=== PATIENT | female | born 2000 | race Caucasian/White ===

== ENCOUNTER 2020-03-24 20:40 | Emergency (ER) | payer OTHER ==
[~2020-03-24] VITALS: Ht 160 cm; Wt 49.3 kg
--- NOTE | 2020-03-24 21:08 | NUR ---
Pt arrives to ed with not feeling well and right ankle swelling. Pt reports she was had an ax reaction to PCN and then switched to azithromycin. Pt reports she also feels ill and not eating as much. Pt reports she does have an appetite but cant eat as she gets nauseas.
[2020-03-24] MEDS ORDERED: ONDANSETRON ODT 4 MG ONE (21:27)
[2020-03-24] MEDS ORDERED: ONDANSETRON ODT 4 MG PO ONE (21:30)
--- NOTE | 2020-03-24 21:31 | NUR ---
US at bedside
--- NOTE | 2020-03-24 21:31 | NUR ---
Pt medicated for nausea
--- NOTE | 2020-03-24 21:33 | NUR ---
Pt informed to drink water in 15 minutes or when she no longer feels nauseas.
[2020-03-24 22:06] LABS: BASOPHILS # (AUTO) 0.05 x10^3/uL (0-0.3); BASOPHILS % (AUTO) 0 % (0-1); EOSINOPHILS # (AUTO) 0.11 x10^3/uL (0-0.8); EOSINOPHILS % (AUTO) 1 % (1-7); LYMPHOCYTES # (AUTO) 2.07 x10^3/uL (1-6.1); LYMPHOCYTES % (AUTO) 17 % (22-44); MD NO; MEAN CORPUSCULAR HEMOGLOBIN 30.1 pg (27.0-34.8); MEAN CORPUSCULAR HGB CONC 32.4 g/dL (32.4-35.8); MEAN PLATELET VOLUME 7.5 fL (7.4-10.4); MONOCYTES # (AUTO) 0.82 x10^3/uL (0-1.4); MONOCYTES % (AUTO) 7 % (2-9); NEUTROPHILS # (AUTO) 9.39 x10^3/uL (1.8-8.0); NEUTROPHILS % (AUTO) 76 % (42-75); PLATELET COUNT 397 x10^3/uL (130-400); RED BLOOD COUNT 4.73 x10^6/uL (3.82-5.3); RED CELL DISTRIBUTION WIDTH 12.1 % (9.6-15.2)
--- NOTE | 2020-03-24 22:50 | NUR ---
Pt ambulated to restroom
[2020-03-24 23:38] LABS: CHLORIDE 105 mmol/L (98-107); CREATININE 0.69 mg/dL (0.55-1.02)
[2020-03-24 23:40] LABS: ANION GAP 7 mmol/L (5-15); CALCIUM 9.2 mg/dL (8.5-10.1)
[2020-03-24] MEDS ORDERED: ACETAMINOPHEN 500 MG TABLET ONE (23:51)
[2020-03-25] MEDS ORDERED: ACETAMINOPHEN 500 MG TABLET PO ONE
--- NOTE | 2020-03-25 00:01 | NUR ---
Pt checked for fever as she was cold, Vitals wnl.
[2020-03-25 00:03] VITALS: BP 126/79
== END 2020-03-25 00:05 | disposition home or self-care (01) ==
LOC: ED 22:22
DX: B34.9 Viral infection, unspecified (principal); R94.31 Abnormal electrocardiogram [ECG] [EKG]
CPT/HCPCS: 36415; 80048; 85025; 86308; 93005; 93971; 99285; Q0162

== ENCOUNTER 2020-03-29 11:13 | Inpatient (IN) | payer OTHER ==
[~2020-03-29] VITALS: Ht 160 cm; Wt 57.0 kg
[2020-03-29] MEDS ORDERED: SODIUM CHLORIDE 0.9% 1,000ML IVBOLUS ONE (12:00)
[2020-03-29] MEDS ORDERED: SODIUM CHLORIDE FLUSH 10ML SYR IVF ONE (12:00)
[2020-03-29] MEDS ORDERED: ONDANSETRON 2MG/ML, 2ML IVPush ONE (12:00)
--- NOTE | 2020-03-29 12:15 | NUR ---
"In mid february I got coronavirus and recovered from that. Then I got strep throat and had an allergic reaction, so they switched my antibiotic, since then, I've had extreme abdominal pain, vomiting, diarrhea with blood in it" describes bilateral abd pain, pt has not had a negative covid test , denies cough, sob, sore throat unknown last period, IUD in place. Appears well, VSS (has slight fever at 99), tolerating water
[2020-03-29] MEDS ORDERED: ONDANSETRON 2MG/ML, 2ML ONE (12:34)
[2020-03-29] MEDS ORDERED: MORPHINE SULFATE 4 MG/ML, 1ML ONE ×2 (12:34→16:22)
--- NOTE | 2020-03-29 12:49 | NUR ---
piv started from which labs including lactate drawn and sent to lab Patient then medicated per emar (nausea/pain/dehydration)
[2020-03-29 12:57] LABS: BASOPHILS # (AUTO) 0.03 x10^3/uL (0-0.3); BASOPHILS % (AUTO) 0 % (0-1); EOSINOPHILS # (AUTO) 0.28 x10^3/uL (0-0.8); EOSINOPHILS % (AUTO) 2 % (1-7); LYMPHOCYTES # (AUTO) 1.63 x10^3/uL (1-6.1); LYMPHOCYTES % (AUTO) 14 % (22-44); MD NO; MEAN CORPUSCULAR HEMOGLOBIN 30.6 pg (27.0-34.8); MEAN CORPUSCULAR HGB CONC 33.6 g/dL (32.4-35.8); MEAN PLATELET VOLUME 8.2 fL (7.4-10.4); MONOCYTES # (AUTO) 0.73 x10^3/uL (0-1.4); MONOCYTES % (AUTO) 6 % (2-9); NEUTROPHILS # (AUTO) 9.17 x10^3/uL (1.8-8.0); NEUTROPHILS % (AUTO) 78 % (42-75); PLATELET COUNT 377 x10^3/uL (130-400); RED BLOOD COUNT 4.91 x10^6/uL (3.82-5.3); RED CELL DISTRIBUTION WIDTH 11.8 % (9.6-15.2)
[2020-03-29] MEDS: MORPHINE SULFATE 4 MG/ML, 1ML IVPush PRN ×2 (12:57→16:28)
[2020-03-29 13:07] LABS: ALBUMIN 3.3 g/dL (3.4-5.0); ANION GAP 8 mmol/L (5-15); CALCIUM 9.1 mg/dL (8.5-10.1); CHLORIDE 100 mmol/L (98-107); CREATININE 0.69 mg/dL (0.55-1.02)
[2020-03-29 13:09] LABS: MICROSCOPIC NOT IND
[2020-03-29 13:11] LABS: ALKALINE PHOSPHATASE 64 U/L (45-117); BILIRUBIN,TOTAL 0.7 mg/dL (0.2-1.0); TOTAL PROTEIN 7.3 g/dL (6.4-8.2)
[2020-03-29 13:18] LABS: ALANINE AMINOTRANSFERASE 22 U/L (12-78)
[2020-03-29] MEDS ORDERED: LEVE750T37 PO (15:01)
--- NOTE | 2020-03-29 15:37 | NUR ---
DR. Faust (HOSPITALIST) AT BEDSIDE
[2020-03-29] MEDS ORDERED: PROMETHAZINE 25 MG/ML, 1ML IM PRN (16:00)
[2020-03-29] MEDS ORDERED: METOCLOPRAMIDE 5 MG/ML, 2ML IVPush PRN (16:00)
[2020-03-29] MEDS ORDERED: ONDANSETRON 2MG/ML, 2ML IVPush PRN (16:00)
[2020-03-29] MEDS ORDERED: MORPHINE SULFATE 4 MG/ML, 1ML IVPush PRN (16:00)
[2020-03-29] MEDS ORDERED: OMNIPAQUE 350 MG/ML, 100ML BOTTLE ONE (16:17)
[2020-03-29] MEDS ORDERED: PANTOPRAZOLE 40 MG IV ONE (16:22)
[2020-03-29] MEDS: SODIUM CHLORIDE 0.9% 1,000 ML IV SCH (16:28)
[2020-03-29] MEDS: PANTOPRAZOLE 40 MG IV IVPush SCH (16:28)
[2020-03-29] MEDS ORDERED: ETHO250C PO (16:36)
--- NOTE | 2020-03-29 16:38 | NUR ---
MEDICATED PER EMAR FOR CONTINUED PAIN RATED AT 8/10
--- NOTE | 2020-03-29 16:49 | NUR ---
THROUGHPUT RN::SPOKE WITH BOTH VERONICA WITH INFECTIOUS DISEASE AND DR. ROCA ABOUT ADMISSION TO MED FLOOR WITHOUT COVID TEST. PER KATY MARTIN FROM CDC INFO, PT IS CONSIDERED NON INFECTIOUS IF QUARENTINED X 10 DAYS MINIMUM, HAD SYMPTOM IMPROVEMENT SINCE COVID DX AND NO FEVER WITHOUT ANTIPYRETICS, AND PT IS NOW SYMPTOM FREE.
--- NOTE | 2020-03-29 16:52 | NUR ---
Hospitalist called to notify for need to order inpatient anti-seizure medicine. Dr. Griffin reports he will order iv keppra and will allow patient to take po zarontin will small sip of water (as there is no iv equivalent
[2020-03-29 17:49] VITALS: BP 122/78
[2020-03-29] MEDS ORDERED: PHARMACY INSTRUCTION MC PRN (18:00)
[2020-03-29] MEDS ORDERED: GOLYTELY 4,000ML ORAL.SOL PO ONE (18:00)
[2020-03-29 18:03] VITALS: BP 122/78
[2020-03-29 20:33] VITALS: BP 130/87
[2020-03-29] MEDS: ETHOSUXIMIDE 500 MG HOMEMEDPO SCH (21:12)
[2020-03-29] MEDS: LEVETIRACETAM 1,500 MG in SODIUM CHLORIDE 0.9% 100 ML IV SCH (21:12)
[2020-03-30] MEDS: SODIUM CHLORIDE 0.9% 1,000 ML IV SCH ×3 (00:21→20:45)
[2020-03-30 00:34] VITALS: BP 119/78
[2020-03-30 06:04] LABS: CHLORIDE 105 mmol/L (98-107)
[2020-03-30 06:10] LABS: ALANINE AMINOTRANSFERASE 15 U/L (12-78); ALBUMIN 2.6 g/dL (3.4-5.0); ALKALINE PHOSPHATASE 48 U/L (45-117); ANION GAP 7 mmol/L (5-15); BILIRUBIN,TOTAL 0.8 mg/dL (0.2-1.0); CALCIUM 8.3 mg/dL (8.5-10.1); CREATININE 0.46 mg/dL (0.55-1.02); TOTAL PROTEIN 5.6 g/dL (6.4-8.2)
[2020-03-30 06:56] VITALS: BP 105/61
[2020-03-30 07:04] LABS: BASOPHILS # (AUTO) 0.03 x10^3/uL (0-0.3); BASOPHILS % (AUTO) 0 % (0-1); EOSINOPHILS # (AUTO) 0.29 x10^3/uL (0-0.8); EOSINOPHILS % (AUTO) 2 % (1-7); LYMPHOCYTES # (AUTO) 2.15 x10^3/uL (1-6.1); LYMPHOCYTES % (AUTO) 18 % (22-44); MD SCAN; MEAN CORPUSCULAR HGB CONC 32.8 g/dL (32.4-35.8); MONOCYTES # (AUTO) 0.85 x10^3/uL (0-1.4); MONOCYTES % (AUTO) 7 % (2-9); NEUTROPHILS # (AUTO) 8.66 x10^3/uL (1.8-8.0); NEUTROPHILS % (AUTO) 72 % (42-75); PLATELET COUNT 318 x10^3/uL (130-400); RED BLOOD COUNT 3.95 x10^6/uL (3.82-5.3); RED CELL DISTRIBUTION WIDTH 11.9 % (9.6-15.2)
[2020-03-30] MEDS: LEVETIRACETAM 1,500 MG in SODIUM CHLORIDE 0.9% 100 ML IV SCH ×2 (09:49→22:08)
[2020-03-30] MEDS: PANTOPRAZOLE 40 MG IV IVPush SCH ×2 (09:50→20:44)
[2020-03-30 12:19] VITALS: BP 106/71
[2020-03-30 14:35] LABS: OCCULT BLOOD POSITIVE (NEGATIVE)
[2020-03-30 15:20] LABS: CLOSTRIDIUM DIFFICILE ANTIGEN NEGATIVE; CLOSTRIDIUM DIFFICILE TOXIN NEGATIVE (Negative)
[2020-03-30 16:33] LABS: STOOL FOR LEUKOCYTES FEW (2-5/HPF) (NEGATIVE)
[2020-03-30 20:18] VITALS: BP 114/71
[2020-03-30] MEDS: ETHOSUXIMIDE 500 MG HOMEMEDPO SCH (20:44)
[2020-03-31 00:22] VITALS: BP 94/60
[2020-03-31] MEDS: SODIUM CHLORIDE 0.9% 1,000 ML IV SCH (02:58)
[2020-03-31 04:20] LABS: BASOPHILS # (AUTO) 0.03 x10^3/uL (0-0.3); BASOPHILS % (AUTO) 0 % (0-1); EOSINOPHILS # (AUTO) 0.34 x10^3/uL (0-0.8); EOSINOPHILS % (AUTO) 3 % (1-7); LYMPHOCYTES # (AUTO) 2.51 x10^3/uL (1-6.1); LYMPHOCYTES % (AUTO) 25 % (22-44); MD NO; MEAN CORPUSCULAR HEMOGLOBIN 29.9 pg (27.0-34.8); MEAN CORPUSCULAR HGB CONC 32.7 g/dL (32.4-35.8); MEAN PLATELET VOLUME 7.9 fL (7.4-10.4); MONOCYTES # (AUTO) 0.78 x10^3/uL (0-1.4); MONOCYTES % (AUTO) 8 % (2-9); NEUTROPHILS # (AUTO) 6.43 x10^3/uL (1.8-8.0); NEUTROPHILS % (AUTO) 64 % (42-75); PLATELET COUNT 326 x10^3/uL (130-400); RED BLOOD COUNT 3.93 x10^6/uL (3.82-5.3); RED CELL DISTRIBUTION WIDTH 12.2 % (9.6-15.2)
[2020-03-31 04:31] LABS: ALBUMIN 2.5 g/dL (3.4-5.0); ANION GAP 5 mmol/L (5-15); CALCIUM 8.2 mg/dL (8.5-10.1); CHLORIDE 109 mmol/L (98-107)
[2020-03-31 04:34] LABS: ALANINE AMINOTRANSFERASE 15 U/L (12-78); ALKALINE PHOSPHATASE 52 U/L (45-117); BILIRUBIN,TOTAL 0.5 mg/dL (0.2-1.0); CREATININE 0.43 mg/dL (0.55-1.02); TOTAL PROTEIN 5.5 g/dL (6.4-8.2)
[2020-03-31 07:44] VITALS: BP 111/75
[2020-03-31] MEDS: LEVETIRACETAM 1,500 MG in SODIUM CHLORIDE 0.9% 100 ML IV SCH ×2 (10:00→22:03)
[2020-03-31] MEDS: PANTOPRAZOLE 40 MG IV IVPush SCH ×2 (10:00→20:43)
[2020-03-31 13:19] VITALS: BP 106/69
[2020-03-31] MEDS ORDERED: SODIUM CHLORIDE 0.9% 1,000 ML IV SCH (15:55)
[2020-03-31 17:58] VITALS: BP 133/86
[2020-03-31 19:26] VITALS: BP 101/68
[2020-03-31] MEDS: ETHOSUXIMIDE 500 MG HOMEMEDPO SCH (20:43)
[2020-04-01 01:11] VITALS: BP 111/72
[2020-04-01 07:35] VITALS: BP 94/60
[2020-04-01] MEDS: PANTOPRAZOLE 40 MG IV IVPush SCH (08:17)
[2020-04-01] MEDS: LEVETIRACETAM 1,500 MG in SODIUM CHLORIDE 0.9% 100 ML IV SCH (10:32)
[2020-04-01 12:53] VITALS: BP 101/69
== END 2020-04-01 15:24 | disposition home or self-care (01) | DRG 179 ==
LOC: ED 13:29 → EDIP 14:55 → 3N 16:31 → 4EST 03-30 00:29
PROVIDERS: ADMIT Internal Medicine; ATTEND Internal Medicine
DX: U07.1 COVID-19 (principal); E86.0 Dehydration; E88.09 Other disorders of plasma-protein metabolism, not elsewhere classified; G40.909 Epilepsy, unspecified, not intractable, without status epilepticus; J02.0 Streptococcal pharyngitis; Z88.0 Allergy status to penicillin; Z86.19 Personal history of other infectious and parasitic diseases; Z83.79 Family history of other diseases of the digestive system
CPT/HCPCS: 36415; 71045; 74177; 80053; 81003; 82272; 83605; 83735; 84100; 84443; 84703; 85014; 85018; 85025; 87046; 87324; 87635; 89055; 96374; 96375; 99285; G0378; J1953; J2405; Q9967; C9113; J2270; J7030

== ENCOUNTER 2020-07-19 17:50 | Emergency (ER) | payer BC, OTHER ==
[~2020-07-19] VITALS: Ht 162.6 cm; Wt 51.7 kg
[~2020-07-19 17:50] MED LIST: ETHO250C PO; LEVE750T37 PO
[2020-07-19] MEDS ORDERED: MORPHINE SULFATE 4 MG/ML, 1ML ONE (18:38)
[2020-07-19] MEDS ORDERED: ONDANSETRON 2MG/ML, 2ML ONE ×2 (18:38→22:12)
[2020-07-19] MEDS: MORPHINE SULFATE 4 MG/ML, 1ML IVPush PRN ×2 (18:39→18:40)
[2020-07-19 18:47] LABS: MEAN CORPUSCULAR HEMOGLOBIN 30.5 pg (27.0-34.8); MEAN CORPUSCULAR HGB CONC 33.8 g/dL (32.4-35.8); PLATELET COUNT 293 x10^3/uL (130-400); RED BLOOD COUNT 4.78 x10^6/uL (3.82-5.3); RED CELL DISTRIBUTION WIDTH 12.8 % (9.6-15.2)
--- NOTE | 2020-07-19 18:53 | NUR ---
REPORT GIVEN TO MARTÍN
[2020-07-19 18:54] LABS: MICROSCOPIC AUTO
--- NOTE | 2020-07-19 18:55 | NUR ---
REPORT RECEIVED FROM ADAN GOVEA
[2020-07-19 18:58] LABS: MD YES
[2020-07-19 19:00] LABS: ALANINE AMINOTRANSFERASE 26 U/L (12-78); ALBUMIN 4.2 g/dL (3.4-5.0); ANION GAP 9 mmol/L (5-15); CHLORIDE 103 mmol/L (98-107); CREATININE 0.67 mg/dL (0.55-1.02)
[2020-07-19] MEDS ORDERED: SODIUM CHLORIDE FLUSH 10ML SYR IVF ONE (19:00)
[2020-07-19] MEDS ORDERED: ONDANSETRON 2MG/ML, 2ML IVPush ONE (19:00)
[2020-07-19 19:03] LABS: ALKALINE PHOSPHATASE 67 U/L (45-117); BILIRUBIN,TOTAL 0.6 mg/dL (0.2-1.0); TOTAL PROTEIN 7.2 g/dL (6.4-8.2)
[2020-07-19 19:29] LABS: <PLATELET ESTIMATE> ADEQUATE; <PLT MORPHOLOGY> NORMAL PLT MORPH; <RBC MORPHOLOGY> NORMAL; BAND#(MANUAL) 0.55 x10^3/uL; BANDS%(MANUAL) 3 % (0-7); LYMPH#(MANUAL) 2.21 x10^3/uL (1-6.1); LYMPHS% (MANUAL) 12 % (22-44); MONOS#(MANUAL) 1.66 x10^3/uL (0.3-2.7); MONOS% (MANUAL) 9 % (2-9); SEG#(MANUAL) 13.98 x10^3/uL (1.8-8); SEGS% (MANUAL) 76 % (42-75)
--- NOTE | 2020-07-19 20:01 | NUR ---
PER CT THEY WILL BE DOWN TO TAKE PT SOON AFTER CURRENT ONE IS FINISHED.
--- NOTE | 2020-07-19 20:18 | NUR ---
PT TO CT
--- NOTE | 2020-07-19 20:28 | NUR ---
PT BACK FROM CT
[2020-07-19] MEDS ORDERED: OMNIPAQUE 350 MG/ML, 100ML BOTTLE ONE (20:32)
--- NOTE | 2020-07-19 21:00 | NUR ---
PT UPDATED ON POC, VERBALIZES UNDERSTANDING. ALL QUESTIONS ANSWERED AT THIS TIME. PT RESTING IN GURNEY, RESP EVEN AND UNLABORED
--- NOTE | 2020-07-19 21:05 | NUR ---
REPORT GIVEN TO ISIDRA GOVEA IN OR
--- NOTE | 2020-07-19 21:13 | NUR ---
ALEX MICHELLE WALKED TO LAB
[2020-07-19] MEDS ORDERED: CEFTRIAXONE PMX 1GM/50ML 50 ML ONE (21:17)
[2020-07-19] MEDS ORDERED: METR500T PO (21:23)
--- NOTE | 2020-07-19 21:23 | NUR ---
MED REC UPDATED AND VERIFIED
[2020-07-19 21:26] VITALS: BP 112/68
[2020-07-19] MEDS ORDERED: MIDAZOLAM 1 MG/ML, 2ML ONE (21:28)
[2020-07-19] MEDS ORDERED: FENTANYL PF 100 MCG/2ML ONE (21:28)
[2020-07-19] MEDS ORDERED: PROPOFOL 10 MG/ML, 20ML ONE (21:29)
[2020-07-19] MEDS ORDERED: ROCURONIUM 10MG/ML,5ML ONE (21:30)
[2020-07-19] MEDS ORDERED: SUCCINYLCHOLINE 20 MG/ML, 10ML ONE (21:30)
[2020-07-19] MEDS ORDERED: CEFTRIAXONE PMX 1GM/50ML 50 ML IV ONE (21:30)
[2020-07-19] MEDS ORDERED: SODIUM CHLORIDE 0.9% 1,000 ML IV ONE (21:30)
[2020-07-19] MEDS ORDERED: BUPIVACAINE/PF 0.5% ONE (21:52)
--- NOTE | 2020-07-19 21:54 | NUR ---
PT TO OR
[2020-07-19] MEDS ORDERED: hydrALAzine 20 MG/ML, 1ML IV PRN (22:00)
[2020-07-19] MEDS ORDERED: FENTANYL PF 100 MCG/2ML IV PRN (22:00)
[2020-07-19] MEDS ORDERED: DIAZEPAM 5 MG/ML, 2ML IVPush PRN (22:00)
[2020-07-19] MEDS ORDERED: HYDROmorphone 1 MG/ML, 1ML INJ IVPush PRN (22:00)
[2020-07-19] MEDS ORDERED: MEPERIDINE/PF 25MG/0.5ML IVPush PRN (22:00)
[2020-07-19] MEDS ORDERED: ONDANSETRON 2MG/ML, 2ML IVPush PRN (22:00)
[2020-07-19] MEDS ORDERED: DIPHENHYDRAMINE 50 MG/ML, 1ML IVPush PRN (22:00)
[2020-07-19] MEDS ORDERED: PROMETHAZINE 25 MG/ML, 1ML IVPush PRN (22:00)
[2020-07-19] MEDS ORDERED: LABETALOL 5MG/ML, 20ML IV PRN (22:00)
[2020-07-19] MEDS ORDERED: OXYcodone 5 MG/5 ML ORAL.SOL UDC PO PRN (22:00)
[2020-07-19] MEDS ORDERED: SUGAMMADEX 200 MG/2 ML IVPush ONE (22:12)
[2020-07-19] MEDS ORDERED: DEXAMETHASONE 4 MG/ML, 1ML ONE (22:12)
[2020-07-19] MEDS ORDERED: BUPIVACAINE/PF 0.5% INFIL ONE (22:24)
[2020-07-19] MEDS ORDERED: OXYC-302 PO (22:45)
[2020-07-19] MEDS ORDERED: OXYcodone 5 MG/5 ML ORAL.SOL UDC ONE (23:21)
== END 2020-07-20 00:23 | disposition home or self-care (01) ==
LOC: ED 20:55 → EDIP 21:20 → UNDOADMIN 21:20 → ED 23:03
DX: K35.80 Unspecified acute appendicitis (principal); Z20.822 Contact with and (suspected) exposure to COVID-19; Z88.0 Allergy status to penicillin; Z87.891 Personal history of nicotine dependence
CPT/HCPCS: 36415; 44970; 74177; 80053; 81001; 83690; 84703; 85025; 87086; 87635; 88304; 96365; 96375; 99285; J0330; J0696; J1100; J2250; J2270; J2405; J2704; J3010; J7030; Q9967; S0020